=== PATIENT | female | born 1945 | race Caucasian/White ===

== ENCOUNTER 2020-02-06 03:12 | Outpatient (CLI) | payer OTHER, SELFPAY ==
--- NOTE | 2020-02-06 | DI.MAMMO_ITS ---
EXAM: MAMMO SCREENING CLINICAL HISTORY: SCREENING, Z12.31 TECHNIQUE: Mammograms were interpreted according to the usual protocol including computer analysis w [employer] CAD system, tomosynthesis and C-view imaging. COMPARISON: FINDINGS: The breasts are moderate density with fairly symmetrical distribution of fibroglandular tissue. No d ominant mass or clumped microcalcification is identified in either breast. The current examination i s compared with previous examinations including November 2017 and there has been no gross interval change in appearance in comparison with the prior studies. IMPRESSION: No specific evidence of malignancy at this time. Routine screening examinations are suggested at yea rly intervals in this age group according to the ACS ACR guidelines. BI-RADS Cat 1 - Negative: Breast Density - Category B - Scattered areas of fibroglandular density:
== END 2020-02-06 03:32 ==
PROVIDERS: PCP Internal Medicine; Visit Provider Internal Medicine
DX: Z12.31 Encounter for screening mammogram for malignant neoplasm of breast (principal); R92.2 Inconclusive mammogram
CPT/HCPCS: 77063; 77067

== ENCOUNTER 2021-01-09 09:31 | Outpatient (REF) | payer OTHER, SELFPAY ==
[2021-01-09 19:26] LABS: Anion Gap 9.8 mmol/L (3-11); BUN 22 mg/dL (7-18); CO2 27.2 mmol/L (21.0-32.0); CREATININE 0.8 mg/dL (0.55-1.02); Calcium 8.8 mg/dL (8.5-10.1); Calculated LDL 151 mg/dL (<100); Chloride 105 mmol/L (98-107); Cholesterol 226 mg/dL (<200); Glucose 98 mg/dL (74-106); HDL Cholesterol 59 mg/dL (40-60); Potassium 4.5 mmol/L (3.5-5.1); Sodium 142 mmol/L (136-145); Triglyceride 84 mg/dL (<150)
== END 2021-01-09 09:32 | disposition home or self-care (01) ==
LOC: NCHCN 09:31
PROVIDERS: PCP Internal Medicine; Visit Provider Internal Medicine
DX: Z00.00 Encounter for general adult medical examination without abnormal findings (principal); E78.00 Pure hypercholesterolemia, unspecified; M81.0 Age-related osteoporosis without current pathological fracture
CPT/HCPCS: 80048; 80061

== ENCOUNTER 2021-04-26 08:42 | Emergency (ER) | payer MEDICARE, SELFPAY ==
[2021-04-26] VITALS (50 sets, daily range): BP systolic 102–156; BP diastolic 55–84; PULSE 63–76; RESP 12–24; TEMP 36.4; O2SAT 93–99
--- NOTE | 2021-04-26 08:45 | RT.EKG_ITS ---
APPROVED REPORT Exam: Resting ECG Reason for Exam: chest pain Patient Location: E HR:71 bpm ECG Measurements Heart Rate 71 AXIS MS 153 P 48 QRSd 103 QRS -75 QT 410 T 53 QTc 442 Conclusion Sinus rhythm...normal P axis, V-rate 60- 99 Atrial premature complex...SV complex w/ short R-R interval LAD, consider left anterior fascicular block...axis(240,-40), S>R II III aVF. Sinus. PACs. LAFB. No STEMI. I have reviewed and interpreted ECG and agree with software generated interpretation.
--- NOTE | 2021-04-26 08:45 | DI.RAD_ITS ---
Exam(s) XR CHEST 2V PA LATERAL EXAM: XR CHEST 2V PA LATERAL CLINICAL HISTORY: CP TECHNIQUE: 2D digital imaging was performed. COMPARISON: DX DEXA BONE DENSITY WITH ANALIA from 09/12/2013 DX DEXA BONE DENSITY WITH ANALIA from 09/12/2013 FINDINGS: MEDIASTINUM: Normal. HEART: Normal. PULMONARY VASCULATURE: Normal. LUNGS: Clear. Mild fibrotic changes. PLEURAL SPACE: No pleural effusion or pneumothorax. BONE:Stable T9 compression fracture. IMPRESSION: No acute abnormality. DATA REPOSITORY: RADIATION DOSE DELIVERED:
--- NOTE | 2021-04-26 08:58 | W.ED.GENAD ---
Discharge Plan Disposition Patient Disposition: HOME Condition: Stable Discharge Details Clinical Impression: Chest pain Primary Care Provider: Drew Forte ED Provider: Heather Dunbar Discharge Instructions Instructions: Chest Pain (ED) Additional Instructions: Labs and imaging are reassuring here today. However, as we discussed I would like for you to continue to pursue work-up for your chest pain. I have placed a referral for outpatient stress test. I would also like you to follow-up with your primary care this week for reevaluation. If you develop recurrent pain, shortness of breath, difficulty breathing or other new/worsening symptoms please seek care urgently once again. As discussed, please try to avoid activities that put you at increased risk such as hiking or biking. You may have short walks near the home, please stay in the accompaniment of your . Referrals: Drew Forte MD [Primary Care Provider] - Discharge Data Discharge Date/Time-TO BE ENTERED AT DEPARTURE: 04/26/21 13:48 Medical Decision Making Patient is a pleasant 75-year-old female, accompanied by her , with chief complaint of chest pain. She reports the chest pain began at 645 this a.m. Reports that pain is now subsided. Pain came on after finishing intercourse with her . Pain was nonradiating. Described as a burning. Denies shortness of breath, nausea, back pain. Has not had pain like this historically. States that she was hiking yesterday and is very physically active without any discomfort. She denies any personal history of cardiac disease. Has not had pain like this historically. On exam, patient appears nontoxic. She is hypertensive her blood pressure 136/84. Does not have any previous vital signs with comparison. Lungs are clear, normal cardiac auscultation. Abdomen benign. No JVD. No lower extremity edema. Particularly as this came on after exertion, concerned for potential ACS. Hx and exam not consistent with dissection. She does not have infectious symptoms. No SOB, stable HR and O2, not consistent with PE. EKG was obtained and reviewed by Dr. Gama. Patient is in sinus rhythm with PACs. No acute evidence of ischemic pathology. Similar to previous images. FINDINGS: Lungs: Subtle probable atelectasis at the left lung base laterally. No airspace consolidations. The lungs are hyperinflated, as can be seen with emphysema/COPD. Pleural spaces: No significant pleural effusions. No pneumothorax. Heart/Mediastinum: Cardiomediastinal silhouette is unremarkable. Bones/joints: Age indeterminate compression deformity of a midthoracic vertebral body with severe anterior loss of vertebral body height and anterior wedging. IMPRESSION: 1. No airspace consolidations. 2. The lungs are hyperinflated, as can be seen with emphysema/COPD. 3. Age indeterminate compression deformity of a midthoracic vertebral body with severe anterior loss of vertebral body height and anterior wedging. No prior studies available for comparison to assess for stability. Correlate with focal tenderness. If clinically indicated, cross-sectional imaging can be obtained to assess further. Patient has no back pain. Labs reviewed. No leukocytosis. Stable H&H. CMP without signficant abnormality. Troponin WNL. Given time of onset, plan for repeat troponin. Discussed findings with the patient. She remains pain free. Repeat troponin is less than 0.05. Repeat EKG reviewed by Dr. Gama. Patient is in a sinus rhythm with no evidence to suggest acute changes. Discussed findings with the patient. HEART score is 3. She and I discussed disposition options. She again reiterates that she had no pain during exertion, it was only after, and no pain when hiking yesterday. Patient is typically very active. Unclear etiology of her CP. However, she is at low risk for MACE. She would prefer outpatient management and I agree with this plan. I recommend outpatient stress test, referral has been sent. Advised close f/u with PCP. Strict return precautions discussed. All of her questions and concerns were addressed, she is in agreement with this plan. [facility] General Mode of arrival: ambulatory. Date/Time Provider Initiated Documentation: 04/26/21 08:55. Limitations to Documentation: no limitations. Information obtained by: patient, family () and RN notes reviewed. History of Present Illness 75 year old F presents to the emergency department with the chief complaint of chest pain, described as moderate, with intensity rated at 8. Quality is described as burning, and is localized to the chest. Patient reports no radiation. Patient started experiencing this hour(s) (0645) and it has been now resolved. No relieving factors improve symptom(s), No exacerbating factors reported (came on after exertion but reports it was not present during exertion) . Patient notes chest pain; denies cough, diaphoresis, fever/chills, headaches, loss of appetite, nausea/vomiting, rash and shortness of breath. Patient did receive the following treatments prior to arrival, none General Stated Complaint: Chest Pain CRIS: 3 Review of Systems Constitutional Constitutional: Reports as per HPI, Denies chills, Denies fever(s), Denies headache(s) and Denies poor appetite ENT Ears, Nose, Mouth, and Throat: Denies dizziness and Denies headache(s) Cardiovascular Cardiovascular: Reports as per HPI, Reports chest pain, Reports leg edema, Denies radiating jaw, neck or arm pain, Denies dyspnea and Denies dyspnea on exertion Respiratory Respiratory: Reports as per HPI, Denies cough, Denies pain on inspiration, Denies dyspnea and Denies dyspnea on exertion Gastrointestinal Gastrointestinal: Reports as per HPI, Denies abdominal pain, Denies nausea and Denies vomiting Musculoskeletal Musculoskeletal: Reports as per HPI and Denies back pain Integumentary/Breasts Skin/Breast: Reports as per HPI and Denies rash Neurologic Neurologic: Reports as per HPI, Denies dizziness and Denies headache(s) [facility] Social History Smoking/Tobacco Use Status: Never Smoking risk assessment performed?: Yes Alcohol Intake: never Substance use type: does not use Do you feel safe at home: Yes Do you feel safe in your relationship?: Yes Exam Const General: cooperative, healthy appearing, comfortable, no acute distress and well developed Nutritional Appearance: average body habitus and well nourished Orientation: alert, awake and oriented x3 HENMT Mouth: moist mucous membranes Chest Chest: normal inspection of the chest, normal palpation of entire chest wall and no crepitus Resp Effort & Inspection: normal respiratory effort, able to speak in complete sentences and no respiratory distress Auscultation: clear to auscultation bilaterally, no rales, no rhonchi and no wheezes Cardio Rate: regular rate Rhythm: regular rhythm Heart Sounds: S1 normal and S2 normal GI Inspection: normal to inspection, no edema and non-distended Palpation: soft, no hepatosplenomegaly, not firm, no guarding, not rigid and nontender Auscultation: normal bowel sounds Skin General skin exam: no rashes or lesions noted Trauma: no lacerations or abrasions Neuro General: patient alert, patient awake and patient oriented x3 Cognition: normal cognition Speech: speech normal Gait: normal gait Extrem General: normal to inspection, capillary refill normal, no pedal edema, no calf tenderness, normal gait and other (2+ distal pulses) Psych Appearance: grossly normal and well kempt Mental Status: mental status grossly normal Speech and Movement: speech and movement normal Course Vital Signs Vital signs: Vital Signs Temperature 36.4 C L 04/26/21 08:50 Pulse 76 04/26/21 08:50 Respiratory Rate 14 04/26/21 08:50 Blood Pressure 156/84 H 04/26/21 08:50 Pulse Oximetry 99 04/26/21 08:50 Temperature 36.4 C L 04/26/21 08:50 Pulse 76 04/26/21 08:50 Respiratory Rate 14 04/26/21 08:50 Blood Pressure 156/84 H 04/26/21 08:50 Blood Pressure Position Supine 04/26/21 08:50 Pulse Oximetry 99 04/26/21 08:50 Oxygen Delivery Method Room Air 04/26/21 08:50 Oxygen Flow Rate 0 04/26/21 08:50 Pain Level 0 04/26/21 08:50 Comment 04/26/21 08:50
[2021-04-26] MEDS: Aspirin 81 MG CHEW 324 MG CH (09:39)
[2021-04-26 09:41] LABS: Abs Immature Grans 0.03 10^3/uL (0.0-0.06); Absolute Basophil Count 0.03 10^3/uL (0.0-0.2); Absolute Eosinophil Count 0.09 10^3/uL (0.0-0.7); Absolute Lymphocyte Count 1.62 10^3/uL (1.2-3.4); Absolute Monocyte Count 0.49 10^3/uL (0.1-0.8); Absolute Neutrophil Count 6.83 10^3/uL (1.2-6.7); Basophils % 0.3; HCT 41.8 % (36.0-46.0); HGB 13.7 g/dL (11.2-15.7); Immature Grans % 0.3; Lymphocytes % 17.8; MCH 30.3 pg (27.0-33.0); MCHC 32.8 % (32.0-36.0); MCV 92.5 fL (80-95); MPV 9.7 fL (8.0-11.0); Monocytes % 5.4; Neutrophils % 75.2; Nucleated RBC 0 %; Platelet Count 295 10^3/uL (130-400); RBC 4.52 10^6/uL (3.93-5.22); RDW-SD 44.6 fL; WBC 9.09 10^3/uL (4.4-10.8)
[2021-04-26 10:02] LABS: ALT 20 U/L (14-59); AST 13 U/L (15-37); Albumin 3.5 g/dL (3.4-5.0); Alkaline Phosphatase 52 U/L (46-116); Anion Gap 7.5 mmol/L (3-11); BUN 19 mg/dL (7-18); Bilirubin, Total 1.1 mg/dL (0.2-1.0); CO2 27.5 mmol/L (21.0-32.0); CREATININE 0.6 mg/dL (0.55-1.02); Calcium 8.8 mg/dL (8.5-10.1); Chloride 107 mmol/L (98-107); Glucose 110 mg/dL (74-106); Magnesium 2.3 mg/dL (1.8-2.4); Potassium 4.1 mmol/L (3.5-5.1); Sodium 142 mmol/L (136-145); Total Protein 6.8 g/dL (6.4-8.2)
[2021-04-26 10:03] LABS: Troponin I < 0.05 ng/mL (<0.06)
--- NOTE | 2021-04-26 10:25 | DI.VRAD_ITS ---
PROCEDURE INFORMATION: Exam: XR Chest Exam date and time: 04/26/2021 8:59 AM Age: 75 years old Clinical indication: Other: Chest pain TECHNIQUE: Imaging protocol: XR of the chest. Views: 2 views. COMPARISON: No relevant prior studies available. FINDINGS: Lungs: Subtle probable atelectasis at the left lung base laterally. No airspace consolidations. The lungs are hyperinflated, as can be seen with emphysema/COPD. Pleural spaces: No significant pleural effusions. No pneumothorax. Heart/Mediastinum: Cardiomediastinal silhouette is unremarkable. Bones/joints: Age indeterminate compression deformity of a midthoracic vertebral body with severe anterior loss of vertebral body height and anterior wedging. IMPRESSION: 1. No airspace consolidations. 2. The lungs are hyperinflated, as can be seen with emphysema/COPD. 3. Age indeterminate compression deformity of a midthoracic vertebral body with severe anterior loss of vertebral body height and anterior wedging. No prior studies available for comparison to assess for stability. Correlate with focal tenderness. If clinically indicated, cross-sectional imaging can be obtained to assess further. Dictated and Authenticated by: Sean Hanna MD. Ordering:OSMIN Romero MD
--- NOTE | 2021-04-26 11:00 | RT.EKG_ITS ---
APPROVED REPORT Exam: Resting ECG Reason for Exam: 2nd ekg Patient Location: E HR:67 bpm ECG Measurements Heart Rate 67 AXIS FL 149 P 58 QRSd 102 QRS -64 QT 422 T 58 QTc 446 Conclusion Sinus rhythm...normal P axis, V-rate 60- 99 Left axis deviation...QRS axis (-30,-90) Consider inferior infarct...Q >35mS in II III aVF. Sinus. No STEMI. I have reviewed and interpreted ECG and agree with software generated interpretation.
[2021-04-26 13:11] LABS: Troponin I < 0.05 ng/mL (<0.06)
== END 2021-04-26 13:48 | disposition home or self-care (01) ==
PROVIDERS: Emergency Provider Physician Assistant; PCP Internal Medicine
DX: R07.89 Other chest pain (principal)
CPT/HCPCS: 36415; 80053; 93005; 99285; 71046; 83735; 84484; 85025; 93010; 99284

== ENCOUNTER 2021-04-30 00:59 | Outpatient (CLI) | payer MEDICARE, SELFPAY ==
--- NOTE | 2021-04-30 15:00 | ETT_ITS ---
APPROVED REPORT Exam: Exercise Treadmill Patient Location: Out-Patient Room/Bed: Stress Nurse: Dina Michelle RN Ordering Provider:SALBADOR SUH, Contact Number: BMI: 21.28 Baseline Rhythm: Sinus Rhythm Indications: Chest pain Medical History Medical History: Cataracts, back pain Cardiac Medications: Timolol maleate eye drops Allergies: No known drug allergies Cardiac Risk Factors: borderline Hyperlipidemia Previous Cardiac Procedures: None Pretest Chest Pain Characteristics: No chest pain Exercise History: Physically active Physical Disabilities: None Lung Sounds: Clear to auscultation Heart Sounds: Regular Stress Test Details Test: Exercise stress testing was performed using a Kin protocol. Rest Stress HR Resting HR Supine: 69 bpm Max Heart Rate (APMHR): 143 bpm Resting HR Standin bpm Target HR (85% APMHR): 121 bpm Max HR Achieved: 138 bpm % of APMHR: 96 Recovery HR: 79 bpm HR response to stress: Normal HR response to stress BP Resting BP Supine: 122/64 mmHg Resting BP Standin/72 mmHg Max BP: 160/76 mmHg Recovery BP: 130/68 mmHg BP response to stress: Normal blood pressure response to stress. ECG Resting ECG: Sinus Rhythm Ectopy: occasional PAC Stress ECG: Sinus Tachycardia ST Change: No significant ST segment changes noted Arrhythmia: PVCs Recovery ECG: Sinus Rhythm Recovery ST Change: No significant ST segment changes noted Recovery Arrhythmia: PVCs, PACs Clinical Reason for Termination: Fatigue Stress Symptoms: General Fatigue Exercise duration: 09 min14 sec Exercise capacity: 10.24 METs Medina Treadmill Score: 8.2 Rate Pressure Product: [id number] Stress ECG Conclusion 1. The resting electrocardiogram was within normal limits 2. Patient exercised on the Kin protocol and completed a workload of 10.24 METS, limited by fatigue 3. Normal heart rate and blood pressure response to exercise. The patient achieved 96% of predicted heart rate for age 4. Electrocardiographically the test was negative for myocardial ischemia 5. Atrial and ventricular ectopic beats were noted Medina Treadmill Score is 8.2 which is Low risk. Stress Test Summary STAGE Time (mins) Speed (mph) Grade (%) HR BP SYMPTOMS METS Supine 69 122/64 Standing 83 114/72 1 3 1.7 10 108 126/72 4.6 2 6 2.5 12 119 7 3 9 3.4 14 138 10.2 1 min recovery 103 158/76 3 min recovery 82 160/76 6 min recovery 79 130/68
== END 2021-04-30 01:19 ==
PROVIDERS: PCP Internal Medicine; Visit Provider Physician Assistant
DX: R07.9 Chest pain, unspecified (principal); I49.1 Atrial premature depolarization; I49.3 Ventricular premature depolarization
CPT/HCPCS: 93016; 93018; 93017

== ENCOUNTER 2021-07-29 11:50 | Outpatient (REF) | payer MEDICARE, SELFPAY ==
[2021-07-30 13:34] LABS: COVID-19 RT-PCR UVMMC Result Negative (Negative)
== END 2021-07-29 11:51 | disposition home or self-care (01) ==
LOC: NCHCN 11:50
PROVIDERS: PCP Internal Medicine; Visit Provider Internal Medicine
DX: Z20.822 Contact with and (suspected) exposure to COVID-19 (principal)
CPT/HCPCS: U0003; U0005

== ENCOUNTER → 2022-01-28 02:38 | Outpatient (CLI) | payer MEDICARE, SELFPAY ==
--- NOTE | 2022-01-28 | DI.MAMMO_ITS ---
Exam(s) MAMMO SCREENING EXAM: MAMMO SCREENING CLINICAL HISTORY: SCREENING, Z12.31 TECHNIQUE: Bilateral full field digital CC and MLO mammographic images were obtained with 3D tomosyn thesis and utilizing computer aided detection (CAD). COMPARISON: Available for comparison. FINDINGS: Masses/Architectural Distortion: None seen. Microcalcifications: No suspicious pleomorphic-type are seen. Skin Thickening/Nipple Retraction: None. IMPRESSION: 1. No significant interval change with no specific features of malignancy noted. 2. Unless there is more urgent need, screening mammography is recommended, as per [employer] guidelines. BI-RADS Category 1 - Negative Breast Density - Category B - Scattered areas of fibroglandular density Breast density category C or D implies that the patient has dense breast tissue. Dense breast tissue is very common and is not abnormal but dense breast tissue can make it harder to find cancer on a ma mmogram. Also, dense breast tissue may increase their breast cancer risk. This information about the result of the mammogram report was provided to the patient to raise their awareness. Use this report when you speak with the patient about their risks for breast cancer, which includes their family hist ory. At that time, you may recommend for more screening tests (Ultrasound or MRI) as they might be us eful based on their risk. A negative radiographic report should not delay biopsy if a dominant or clinically suspicious mass is present. Up to ten percent of cancers are not identified on mammography. A negative report may reinforce clinical impression. Adenosis and dense breasts may obscure an underlying neoplasm. False positive reports average 6 to 10%. Patient will receive a letter notifying them of these results.
--- NOTE | 2022-01-28 15:00 | DI.RAD_ITS ---
Exam(s) XR LUMBAR SPINE COMPLETE EXAM: XR LUMBAR SPINE COMPLETE CLINICAL HISTORY: BACK PAIN LUMBOSACRAL CHRONIC, M54.5. TECHNIQUE: 2D digital imaging was performed of the lumbar spine. Five images were obtained. AP, la teral, right oblique, left oblique and L5-S1 spot views were obtained. COMPARISON: No exams were available for comparison FINDINGS: BONES: No fracture or destructive lesion. Vertebral bodies are unremarkable. Degenerative changes of the facets at L4-5 and L5-S1. Osteopenia. DISKS: Intervertebral disc spaces are maintained. ALIGNMENT: Lumbar spinal alignment is within normal limits. Grade 1 pseudo spondylolisthesis of L4 on L5. SOFT TISSUE: Normal. IMPRESSION: Mild degenerative changes in the lumbar spine. DATA REPOSITORY: RADIATION DOSE DELIVERED:
== END ==
PROVIDERS: PCP Internal Medicine; Visit Provider Internal Medicine
DX: M51.36 Other intervertebral disc degeneration, lumbar region (principal); Z12.31 Encounter for screening mammogram for malignant neoplasm of breast
CPT/HCPCS: 77063; 77067; 72110

== ENCOUNTER → 2023-09-07 04:29 | Outpatient (CLI) | payer MEDICARE, SELFPAY ==
--- NOTE | 2023-09-07 14:06 | DI.RAD_ITS ---
Exam(s) XR KNEE RT 3V AP,LAT,JANETH EXAM: XR KNEE RT 3V AP,LAT,JANETH CLINICAL HISTORY: KNEE PAIN, M25.569. TECHNIQUE: 2D digital imaging was performed. Three views. COMPARISON: No exams were available for comparison FINDINGS: BONES: No acute fracture is present. No bony destructive lesion is seen. JOINTS: The knee is normally aligned. No joint effusion is seen. Joint spaces are maintained. SOFT TISSUE: Normal. IMPRESSION: Unremarkable radiographs of the right knee. DATA REPOSITORY: RADIATION DOSE DELIVERED:
== END ==
PROVIDERS: PCP Internal Medicine; Visit Provider Family Medicine
DX: M25.561 Pain in right knee (principal)
CPT/HCPCS: 73562

== ENCOUNTER → 2023-11-07 13:13 | Outpatient (BNVA) | payer MEDICARE, SELFPAY | PROVIDERS: PCP Internal Medicine; Referring Provider Internal Medicine; Visit Provider Student in an Organized Health Care Education/Training Program | DX: M23.91 Unspecified internal derangement of right knee (principal) | CPT/HCPCS: 99213 ==

== ENCOUNTER 2023-12-16 17:14 | Emergency (ER) | payer MEDICARE, SELFPAY ==
[2023-12-16 17:18] VITALS: BP 117/69; PULSE 92; RESP 16; TEMP 37.1; O2SAT 97
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
--- NOTE | 2023-12-16 17:59 | DI.RAD_ITS ---
Exam(s) XR KNEE RT 3V AP,LAT,JANETH EXAM: XR KNEE RT 3V AP,LAT,JANETH CLINICAL HISTORY: R knee pain. TECHNIQUE: 2D digital imaging was performed of the right knee. Three views obtained. AP, lateral an d PA tunnel views were obtained. COMPARISON: CR XR KNEE RT 3V AP,LAT,JANETH from 09/07/2023 FINDINGS: BONES: There is a comminuted lateral tibial plateau fracture. There is 6-7 mm depression. No bony d estructive lesion is seen. JOINTS: The knee is normally aligned. There is a lipohemarthrosis. SOFT TISSUE: Normal. IMPRESSION: There is a comminuted depressed lateral tibial plateau fracture. DATA REPOSITORY: RADIATION DOSE DELIVERED:
[2023-12-16] MEDS: Ibuprofen 400 MG TAB PO (18:30)
== END 2023-12-16 19:14 | disposition home or self-care (01) ==
PROVIDERS: Emergency Provider Physician Assistant; PCP Family Medicine
DX: S82.141A Displaced bicondylar fracture of right tibia, initial encounter for closed fracture (principal); V19.88XA Pedal cyclist (driver) (passenger) injured in other specified transport accidents, initial encounter; Y93.55 Activity, bike riding
CPT/HCPCS: 73562; 99283

== ENCOUNTER 2024-02-06 14:51 | Outpatient (REF) | payer MEDICARE, SELFPAY ==
[2024-02-06 17:24] LABS: ALT 22 U/L (14-59); AST 12 U/L (15-37); Albumin 3.8 g/dL (3.4-5.0); Alkaline Phosphatase 60 U/L (46-116); Anion Gap 9.9 mmol/L (3-11); BUN 19 mg/dL (7-18); Bilirubin, Total 0.73 mg/dL (0.2-1.0); CO2 25.1 mmol/L (21.0-32.0); CREATININE 0.5 mg/dL (0.55-1.02); Calculated LDL 122 mg/dL (<100); Chloride 105 mmol/L (98-107); Cholesterol 210 mg/dL (<200); Estimated GFR 94.76 (mL/min/1.73m2); Glucose 101 mg/dL (74-106); HDL Cholesterol 51 mg/dL (40-60); Potassium 4.2 mmol/L (3.5-5.1); Sodium 140 mmol/L (136-145); Total Protein 6.9 g/dL (6.4-8.2); Triglyceride 186 mg/dL (<150); Vitamin D 25 Total 62.9 ng/mL (30-100)
[2024-02-06 18:50] LABS: Calcium 9.5 mg/dL (8.5-10.1)
== END 2024-02-06 14:52 | disposition home or self-care (01) ==
LOC: NCHCN 14:51
PROVIDERS: PCP Family Medicine; Visit Provider Family Medicine
DX: E78.00 Pure hypercholesterolemia, unspecified (principal); M81.0 Age-related osteoporosis without current pathological fracture
CPT/HCPCS: 80053; 80061; 82306

== ENCOUNTER 2024-04-26 02:09 | Outpatient (CLI) | payer MEDICARE, SELFPAY ==
--- NOTE | 2024-04-26 | DI.MAMMO_ITS ---
Exam(s) MAMMO SCREENING EXAM: MAMMO SCREENING CLINICAL HISTORY: Screening, Z12.31. TECHNIQUE: Bilateral full field digital CC and MLO mammographic images were obtained with 3D tomosyn thesis and utilizing computer aided detection (CAD). COMPARISON: Prior mammograms were reviewed. FINDINGS: There has been no significant change in the appearance and distribution of the fibroglandular tissue. There are no new spiculated masses nor malignant appearing microcalcification groups. There is no significant architectural distortion nor skin thickening-retraction. IMPRESSION: No radiographic evidence of malignancy. BI-RADS Category 1 - Negative Breast Density - Category B - Scattered areas of fibroglandular density Breast density Category C or D implies that the patient has dense breast tissue. Dense breast tissue can make it harder to find cancer on a mammogram. Dense breast tissue is also associated with an incr eased risk of breast cancer. This information about the result of the mammogram report was provided to the patient to raise their awareness. Use this report when you speak with the patient about their risks for breast cancer, which includes their family history. At that time, you may recommend additional screening tests (Ultrasoun d or MRI) as these tests may add significant information. A negative radiographic report should not delay biopsy if a dominant or clinically suspicious mass is present. Up to ten percent of cancers are not identified on mammography. A negative report may reinforce clinical impression. Adenosis and dense breasts may obscure an underlying neoplasm. False positive reports average 6 to 10%. Patient will receive a letter notifying them of these results.
== END 2024-04-26 02:29 ==
LOC: DI 02:09
PROVIDERS: PCP Family Medicine; Visit Provider Family Medicine
DX: Z12.31 Encounter for screening mammogram for malignant neoplasm of breast (principal)
CPT/HCPCS: 77063; 77067

== ENCOUNTER 2025-02-18 16:32 | Outpatient (REF) | payer MEDICARE, SELFPAY ==
[2025-02-18 17:53] LABS: Vitamin D 25 Total 65 ng/mL (30-100)
== END 2025-02-18 16:33 | disposition home or self-care (01) ==
LOC: NCHCN 16:32
PROVIDERS: PCP Family Medicine; Visit Provider Family Medicine
DX: M81.0 Age-related osteoporosis without current pathological fracture (principal)
CPT/HCPCS: 82306

== ENCOUNTER 2025-03-05 15:10 | Outpatient (REF) | payer MEDICARE, SELFPAY ==
[2025-03-05 21:20] LABS: ALT 26 U/L (14-59); AST 15 U/L (15-37); Albumin 3.7 g/dL (3.4-5.0); Alkaline Phosphatase 56 U/L (46-116); Anion Gap 6.3 mmol/L (3-11); BUN 21 mg/dL (7-18); Bilirubin, Total 0.9 mg/dL (0.2-1.0); CO2 27.7 mmol/L (21.0-32.0); Calcium 8.9 mg/dL (8.5-10.1); Chloride 105 mmol/L (98-107); Estimated GFR 34.79 (mL/min/1.73m2); Glucose 123 mg/dL (74-106); Potassium 4.5 mmol/L (3.5-5.1); Sodium 139 mmol/L (136-145); Total Protein 6.7 g/dL (6.4-8.2)
== END 2025-03-05 15:11 | disposition home or self-care (01) ==
LOC: NCHCN 15:10
PROVIDERS: PCP Family Medicine; Visit Provider Family Medicine
DX: M81.0 Age-related osteoporosis without current pathological fracture (principal)
CPT/HCPCS: 80053

== ENCOUNTER 2025-04-02 18:41 | Outpatient (REF) | payer MEDICARE, SELFPAY ==
[2025-04-02 21:33] LABS: Glucose Negative (Negative)
[2025-04-02 21:44] LABS: HCT 41.0 % (36.0-46.0); HGB 13.8 g/dL (11.2-15.7); MCH 30.9 pg (27.0-33.0); MCHC 33.7 % (32.0-36.0); MCV 92 fL (80-95); MPV 10.7 fL (8.0-11.0); Platelet Count 314 10^3/uL (130-400); RBC 4.47 10^6/uL (3.93-5.22); RDW 13.1 % (11.7-14.6); RDW-SD 44.0 fL; WBC 6.99 10^3/uL (4.4-10.8)
[2025-04-02 21:49] LABS: COMMENT (LAB VIEW ONLY) 115.88 mg/dL; Microalb ug/mg Crea 12.0 ug/mg Cr
[2025-04-02 22:10] LABS: ALT 23 U/L (14-59); AST 14 U/L (15-37); Albumin 3.6 g/dL (3.4-5.0); Alkaline Phosphatase 58 U/L (46-116); Anion Gap 9.7 mmol/L (3-11); BUN 19 mg/dL (7-18); Bilirubin, Total 0.9 mg/dL (0.2-1.0); CO2 26.3 mmol/L (21.0-32.0); Calcium 8.5 mg/dL (8.5-10.1); Chloride 103 mmol/L (98-107); Estimated GFR 34.79 (mL/min/1.73m2); Glucose 106 mg/dL (74-106); Potassium 4.3 mmol/L (3.5-5.1); Sodium 139 mmol/L (136-145); Total Protein 6.6 g/dL (6.4-8.2)
[2025-04-04 14:27] LABS: Albumin 62.9 % (55.8-66.1); Albumin g/dL 4.2 g/dL (3.6-5.2); Alpha 1 g/dL 0.20 g/dL (0.15-0.40); Alpha 2 g/dL 0.60 g/dL (0.50-1.00); Beta g/dL 0.70 g/dL (0.60-1.20); Gamma g/dL 1.00 g/dL (0.60-1.60); Total Protein 6.6 g/dL (6.3-8.2)
== END 2025-04-02 18:42 | disposition home or self-care (01) ==
LOC: NCHCN 18:41
PROVIDERS: PCP Family Medicine; Visit Provider Family Medicine
DX: M81.0 Age-related osteoporosis without current pathological fracture (principal)
CPT/HCPCS: 80053; 85027; 81003; 82043; 82570; 84165

== ENCOUNTER 2025-04-12 15:20 | Outpatient (CLI) | payer MEDICARE, SELFPAY ==
--- NOTE | 2025-04-12 | DI.US_ITS ---
Exam(s) US RENAL EXAM: US RENAL CLINICAL HISTORY: ABNL KIDNEY FUNCTION, N28.9,EVAL RENAL PARENCHYMA, GFR DECLINED 94 TO 34. TECHNIQUE: [place] scale, color and spectral Doppler were used. COMPARISON: No exams were available for comparison FINDINGS: Renal size in cm: Right: 10.6. Left: 10.4. Echogenicity: There is normal thickness and echogenicity of the renal cortex. Hydronephrosis: No. Cyst or mass: There is a 2.2 x 1.4 x 2.0 cm left parapelvic cyst. Nephrolithiasis: No. Other findings: None. Bladder:Normal. Ureteral jets: Right: Not visualized on this examination. Left: Not visualized on this examination. Prevoid vol:260 cc Postvoid vol:12 cc Renal color flow: Symmetric and within normal limits. IMPRESSION: Normal sonographic appearance of the kidneys. DATA REPOSITORY:
== END 2025-04-12 15:40 ==
LOC: DI 15:20
PROVIDERS: PCP Family Medicine; Visit Provider Family Medicine
DX: N28.9 Disorder of kidney and ureter, unspecified (principal)
CPT/HCPCS: 76770

== ENCOUNTER 2025-04-25 03:38 | Outpatient (CLI) | payer MEDICARE, SELFPAY ==
--- NOTE | 2025-04-25 10:00 | ST.MBS_ITS ---
Date of Service Date of service: 04/25/25 Time of Service: 10:00 Modified Barium Swallow Study Findings: Video fluoroscopic Swallowing Evaluation (VFSE) / Modified Barium Swallow Study (MBSS) Speech Language Pathology Report Patient referred for VFSE/MBSS from Dr Dian Diallo given aspiration/dysphagia concerns. HPI & Patient report of function: Meaghan Oneil is an 79 year old female referred for MBSS due to dysphagia, concern for aspiration, GERD, and waking up coughing/choking while swallowing and in sleep. She reports she has been 'choking for ages' with pills and some hard solids like bread, where she will need to cough it back up and re-swallow. She also reports that over the past 5 years she has been waking up with chest pain and coughing. At times she can 'choke on saliva'. Meaghan reports significant post nasal drip symptoms but denies reflux. PMHx: Unremarkable for dysphagia Previous Imaging: None pertinent to dysphagia IMPRESSIONS: Modified barium swallow study is well within normal limits for age. There is no evidence of oral or pharyngeal dysphagia. Education provided to patient re: normalcy of difficulty swallowing pills with age, with compensatory suggestions provided as outlined below. We discussed how her evening coughing/choking episodes appear related to laryngeal cough reflex from post nasal drip drainage and/or acid reflux. Meaghan states she feels it is likely the PND as she does not feel she is experiencing reflux, though LPR is possible especially with chest pain complaint. She was encouraged to follow up with PCP for further management of PND symptoms and possibly further rule out of GERD/LPR if indicated. 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 RECOMMENDATIONS: IDDSI LEVEL SOLIDS 7-Regular Solids LIQUIDS 0-Thin Liquids MEDICATIONS Try whole in applesauce Risk Management Strategies:? Behavioral reflux precautions, including upright position during + 90 mins after meals and avoid eating 3 hours before bedtime Small bites, approx [id number] Small sips, approx 10 mL Chew food well before swallowing Pills in applesauce PLAN: Evaluation only OBJECTIVE Videofluoroscopic Swallow Evaluation (VFSE/MBSS) was conducted in the lateral and [id number]-of-[id number] projection by Speech-Language Pathologist, in collaboration with Radiologist, to evaluate oropharyngeal swallow function. Anatomic view under fluoroscopy: WFL PO Barium Contrast Trials Oral barium water-soluble contrast was administered as follows: IDDSI Level 0 Varibar thin liquid (40% w/v) IDDSI Level 2 Varibar nectar thick/mildly thick liquid (40% w/v) IDDSI Level 4 Varibar pudding/pureed/extremely thick (40% w/v) IDDSI Level 7 Regular Solid: 1/2 fig shea coated in 3 mL Varibar pudding 13 mm barium tablet taken with Thin Liquids. MBSImP Component Scores: COMPONENT Scale SCORE 1 Lip closure (0-4) 0 Resulted in no labial escape 2 Hold Position (0-3) 0 Maintained a cohesive bolus between tongue to palatal seal 3 Bolus Preparation (0-4) 0 Resulted in timely and efficient chewing and mashi ng 4 Bolus Transport (0-4) 0 Was with brisk tongue motion 5 Oral Residue (0-4) 0 Was not observed. There was complete oral clearance 6 Swallow Initiation (0-4) 1 Occurred when the bolus head was in valleculae 7 Soft Palate Elevation (0-4) 0 Resulted in no bolus between soft palate and t he pharyngeal wall 8 Laryngeal Elevation (0-3) 0 Demonstrated complete superior movement of thyro id cartilage with complete approximation of arytenoids to epiglottic petiole 9 Anterior Hyoid Motion (0-2) 0 Demonstrated complete anterior movement 10 Epiglottic Movement (0-2) 0 Resulted in complete inversion 11 Laryngeal Closure (0-2) 0 Was complete with no air or contrast in laryngeal vestibule 12 Pharyngeal Stripping Wave (0-2) 1 Was present, but diminished 13 Pharyngeal Contraction (0-3) 0 Was complete 14 PES Opening (0-3) 0 Was completely distended and complete duration with no obstruction of flow 15 Tongue Base Retraction (0-4) 1 Allowed a trace column of contrast or air between tongue base and pharyngeal wall 16 Pharyngeal Residue (0-4) 2 Was a collection of residue within vallecular, cleared with repeat dry swallow 17 Esophageal Clearance (0-4) 0 Was complete through scan of sternal region Results: COMPONENT Scale SCORE 1 Oral Score (0-18) 1 2 Pharyngeal Score (0-29) 3 3 Esophageal Score (0-4) 0 Penetration-Aspiration Scale: COMPONENT Scale SCORE 1 Thin liquid (1-8) 1 Contrast did not enter the airway 2 [place] thick (1-8) 1 Contrast did not enter the airway 3 Honey thick (1-8) NA 4 Pudding thick (1-8) 1 Contrast did not enter the airway 5 Cookie (1-8) 1 Contrast did not enter the airway Thank you for allowing us to take part in this patient's care. Please feel free to contact the [facility] Speech Language Pathology Department with any questions/concerns.
[2025-04-25] MEDS: Barium Sulfate Oral Paste 40% W/V 230 ML TUBE PO (10:33)
[2025-04-25] MEDS: Barium Sulfate 700 MG TAB PO (10:34)
[2025-04-25] MEDS: Barium Sulfate 40% W/V 240 ML BTL PO (10:35)
[2025-04-25] MEDS: Barium Sulfate 81% w/w for Oral Suspension 148 GM BTL PO (10:36)
--- NOTE | 2025-04-25 10:50 | DI.RAD_ITS ---
Exam(s) RF MODIFIED SPEECH BA SWALLOW TECHNIQUE: Modified barium swallow was performed in conjunction with speech pathology. CONTRAST MATERIAL: Oral barium contrast was administered. COMPARISON: No exams were available for comparison FINDINGS: Note that this is not a dedicated esophagram, distal esophagus not evaluated. There is no evidence of aspiration or penetration of thick or thin liquids, barium pudding, barium tablet or barium coated cookie. Speech pathology report to follow. IMPRESSION: No evidence of aspiration or penetration. RADIATION DOSE DELIVERED: emily Milian=4.68 mGy
== END 2025-04-25 03:58 ==
LOC: DI 03:38
PROVIDERS: PCP Family Medicine; Visit Provider Family Medicine
DX: R13.10 Dysphagia, unspecified (principal)
CPT/HCPCS: 92526; 74221

== ENCOUNTER 2025-04-30 00:54 | Outpatient (CLI) | payer MEDICARE, SELFPAY ==
--- NOTE | 2025-04-30 | DI.MAMMO_ITS ---
Exam(s) MAMMO SCREENING EXAM: MAMMO SCREENING CLINICAL HISTORY: SCREENING,Z12.31. TECHNIQUE: Bilateral full field digital CC and MLO mammographic images were obtained with 3D tomosynthesis and utilizing computer aided detection (CAD). COMPARISON: Prior mammograms were reviewed. FINDINGS: There has been no significant change in the appearance and distribution of the fibroglandular tissue. There are no new spiculated masses nor malignant appearing microcalcification groups. There is no significant architectural distortion nor skin thickening-retraction. IMPRESSION: No radiographic evidence of malignancy. BI-RADS Category 1 - Negative Breast Density - Category B - There are scattered areas of fibroglandular density. Breast density Category C or D implies that the patient has dense breast tissue. Dense breast tissue can make it harder to find cancer on a mammogram. Dense breast tissue is also associated with an increased risk of breast cancer. This information about the result of the mammogram report was provided to the patient to raise their awareness. Use this report when you speak with the patient about their risks for breast cancer, which includes their family history. At that time, you may recommend additional screening tests (Ultrasound or MRI) as these tests may add significant information. A negative radiographic report should not delay biopsy if a dominant or clinically suspicious mass is present. Up to ten percent of cancers are not identified on mammography. A negative report may reinforce clinical impression. Adenosis and dense breasts may obscure an underlying neoplasm. False positive reports average 6 to 10%. Patient will receive a letter notifying them of these results.
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
== END 2025-04-30 01:14 ==
PROVIDERS: PCP Family Medicine; Visit Provider Family Medicine
DX: M81.0 Age-related osteoporosis without current pathological fracture (principal); Z12.31 Encounter for screening mammogram for malignant neoplasm of breast; R92.323 Mammographic fibroglandular density, bilateral breasts
CPT/HCPCS: 77063; 77067; 77080

== ENCOUNTER 2025-05-23 18:47 | Outpatient (REF) | payer MEDICARE, SELFPAY ==
[2025-05-23 20:43] LABS: Anion Gap 10.5 mmol/L (3-11); BUN 16 mg/dL (9-23); CO2 25.5 mmol/L (20.0-31.0); Calcium 9.1 mg/dL (8.3-10.6); Chloride 105 mmol/L (98-107); Glucose 98 mg/dL (74-106); Potassium 4.2 mmol/L (3.5-5.1); Sodium 141 mmol/L (136-145)
== END 2025-05-23 18:48 | disposition home or self-care (01) ==
LOC: NCHCN 18:47
PROVIDERS: PCP Family Medicine; Visit Provider Family Medicine
DX: N28.9 Disorder of kidney and ureter, unspecified (principal)
CPT/HCPCS: 80048

== ENCOUNTER 2025-07-01 14:58 | Outpatient (REF) | payer MEDICARE, SELFPAY ==
[2025-07-01 17:09] LABS: Creatinine,Urine 42.3 mg/dL
[2025-07-01 17:35] LABS: Creatinine,24hr Ur 1.02 g/24hr (0.60-1.80); Total Volume 2400 mL
[2025-07-03 09:48] LABS: Calcium Urine 18.6 mg/dL (See Note); Timed Urine Volume 2400 mL
== END 2025-07-01 14:59 | disposition home or self-care (01) ==
LOC: LBN 14:58
PROVIDERS: PCP Family Medicine; Visit Provider Nurse Practitioner Primary Care
DX: M81.0 Age-related osteoporosis without current pathological fracture (principal)
CPT/HCPCS: 81050; 82340; 82570

== ENCOUNTER 2025-07-03 14:07 | Outpatient (REF) | payer MEDICARE, SELFPAY ==
[2025-07-03 20:37] LABS: Anion Gap 11.1 mmol/L (3-11); BUN 18 mg/dL (9-23); CO2 23.9 mmol/L (20.0-31.0); Calcium 8.9 mg/dL (8.3-10.6); Chloride 108 mmol/L (98-107); Glucose 123 mg/dL (74-106); Potassium 4.0 mmol/L (3.5-5.1); Sodium 143 mmol/L (136-145)
== END 2025-07-03 14:08 | disposition home or self-care (01) ==
LOC: NCHCN 14:07
PROVIDERS: PCP Family Medicine; Visit Provider Family Medicine
DX: N28.9 Disorder of kidney and ureter, unspecified (principal)
CPT/HCPCS: 80048